=== PATIENT | male | born 1960 | race Caucasian/White ===

== ENCOUNTER 2017-01-20 04:15 | Inpatient (IN) | payer SELFPAY ==
[~2017-01-20] VITALS: Ht 182.9 cm; Wt 95.0 kg
[2017-01-20] VITALS (30 sets, daily range): BP systolic 142–214; BP diastolic 74–119; PULSE 52–74; RESP 12–18; TEMP 97.7–98.9; O2SAT 97–100
[~2017-01-20 04:15] MED LIST: ALBU17I INH; LASI20TA PO; LISI-360 PO; METO100T PO; POTA20PA PO
--- NOTE | 2017-01-20 04:22 | PD ---
HPI Chief Complaint: Chest Pain Time Seen by Provider: 04:17 Travel History International Travel<30 days: No Contact w/Intl Traveler<30days: No History of Present Illness HPI Patient is a 56-year-old male with history of malignant hypertension and aortic dissection status post stenting approximately 2 years ago at [facility]. Patient believes that this was a dissection of the ascending and descending aorta. He points to both his chest and abdomen. Patient states that he has had now 4 hours of a tightness across his chest that feels somewhat similar to when he had an aortic dissection, but not to this severity, with today's pain been mild to moderate. Patient states his blood pressure has been poorly managed for some time. He took 2 metoprolol prior to arrival and his blood pressure remains in the 200 systolic in triage. He denies any associated shortness of breath, nausea, vomiting, lightheadedness. No history of coronary artery disease. PFSH Past Medical History Anxiety: No Depression: No Heart Rhythm Problems: No Cancer: No Cardiac Catheterization: Yes (2004) Cardiovascular Problems: Yes (CARDIOMEGALY ) Chest Pain: No Cerebrovascular Accident: No Diabetes: No Endocrine: No GERD: Yes Genitourinary: No Hypertension: Yes Immune Disorder: No Musculoskeletal: Yes Neurologic: Yes Psychiatric: No Reproductive: No Respiratory: No Migraines: Yes Past Surgical History Abdominal Surgery: No Cardiac Surgery: No Endocrine Surgery: No Eye Surgery: No Genitourinary Surgery: No Thoracic Surgery: No Tonsillectomy: Yes Other Surgery: Yes (stent for aortic dissection) Social History Alcohol Use: Yes (OCC) Tobacco Use: Yes (10/21 PPD) Substance Use: No Allergies-Medications (Allergen,Severity, Reaction): Coded Allergies: No Known Allergies (Unverified , 01/20/17) Reported Meds & Prescriptions Reported Meds & Active Scripts Active Reported Metoprolol Tartrate 100 Mg Tab 100 Mg PO BID Proventil Hfa 6.7 GM Inh (Albuterol Sulfate) Unknown Strength Aer Unknown Dose INH Q4-6H PRN Lisinopril 20 Mg Tab 20 Mg PO BID Review of Systems Except as stated in HPI: all other systems reviewed are Neg Physical Exam Narrative GENERAL: Well-appearing male in mild distress SKIN: Focused skin assessment warm/dry. HEAD: Normocephalic. EYES:No scleral icterus. No injection or drainage. ENT: Mucous membranes pink and moist. NECK: Supple CARDIOVASCULAR: Regular rate and rhythm. No murmur appreciated. RESPIRATORY: No accessory muscle use. Clear to auscultation. Breath sounds equal bilaterally. GASTROINTESTINAL: Abdomen soft, non-tender, nondistended. Hepatic and splenic margins not palpable. MUSCULOSKELETAL: Good distal pulses in all 4 extremities, no edema. NEUROLOGICAL: Awake and alert. Motor grossly within normal limits. Normal speech. PSYCHIATRIC: Appropriate mood and affect; insight and judgment normal. Data Data Last Documented VS Vital Signs Date Time Temp Pulse Resp B/P Pulse Ox O2 Delivery O2 Flow Rate FiO2 01/20/17 06:17 63 12 163/78 100 Room Air 01/20/17 04:17 98.9 Orders Electrocardiogram (01/20/17 04:17) Basic Metabolic Panel (Bmp) (01/20/17 04:17) Ckmb (Isoenzyme) Profile (01/20/17 04:17) Complete Blood Count With Diff (01/20/17 04:17) Magnesium (Mg) (01/20/17 04:17) Prothrombin Time / Inr (Pt) (01/20/17 04:17) Act Partial Throm Time (Ptt) (01/20/17 04:17) Troponin I (01/20/17 04:17) Chest, Single Ap (01/20/17 04:17) Ecg Monitoring (01/20/17 04:17) Bilateral Bp Monitoring (01/20/17 04:17) Iv Access Insert/Monitor (01/20/17 04:17) Oximetry (01/20/17 04:17) Oxygen Administration (01/20/17 04:17) Sodium Chloride 0.9% Flush (Ns Flush) (01/20/17 04:30) Nitroglycerin Sl (Nitrostat Sl) (01/20/17 04:30) Cta Thor Abd Aorta W Iv C W3d (01/20/17 04:17) Labetalol Inj (Trandate Inj) (01/20/17 04:30) Labetalol Inj (Trandate Inj) (01/20/17 04:45) CKMB (01/20/17 04:35) CKMB% (01/20/17 04:35) Hydralazine Inj (Apresoline Inj) (01/20/17 05:30) Enalaprilat Inj (Vasotec Inj) (01/20/17 06:15) Iohexol 350 Inj (Omnipaque 350 Inj) (01/20/17 06:10) Labs Laboratory Tests Test 01/20/17 04:35 White Blood Count 9.5 TH/MM3 Red Blood Count 5.35 MIL/MM3 Hemoglobin 17.1 GM/DL Hematocrit 49.8 % Mean Corpuscular Volume 93.1 FL Mean Corpuscular Hemoglobin 32.0 PG Mean Corpuscular Hemoglobin 34.3 % Concent Red Cell Distribution Width 14.2 % Platelet Count 246 TH/MM3 Mean Platelet Volume 7.6 FL Neutrophils (%) (Auto) 58.8 % Lymphocytes (%) (Auto) 27.7 % Monocytes (%) (Auto) 8.6 % Eosinophils (%) (Auto) 4.3 % Basophils (%) (Auto) 0.6 % Neutrophils # (Auto) 5.6 TH/MM3 Lymphocytes # (Auto) 2.6 TH/MM3 Monocytes # (Auto) 0.8 TH/MM3 Eosinophils # (Auto) 0.4 TH/MM3 Basophils # (Auto) 0.1 TH/MM3 CBC Comment DIFF FINAL Differential Comment Prothrombin Time 10.9 SEC Prothromb Time International 1.0 RATIO Ratio Activated Partial 27.4 SEC Thromboplast Time Sodium Level 139 MEQ/L Potassium Level 3.2 MEQ/L Chloride Level 105 MEQ/L Carbon Dioxide Level 25.3 MEQ/L Anion Gap 9 MEQ/L Blood Urea Nitrogen 9 MG/DL Creatinine 1.34 MG/DL Estimat Glomerular Filtration 55 ML/MIN Rate Random Glucose 105 MG/DL Calcium Level 9.1 MG/DL Magnesium Level 2.3 MG/DL Total Creatine Kinase 152 U/L Creatine Kinase MB 3.2 NG/ML Troponin I 0.13 NG/ML [facility] Medical Decision Making Medical Screen Exam Complete: Yes Emergency Medical Condition: Yes Medical Record Reviewed: Yes Differential Diagnosis 56-year-old male with history of malignant hypertension and previous aortic dissection status post stent repair here with complaint of 4 hours of a tightness across the precordium similar to when he had a dissection. Differential includes aortic dissection, atypical chest pain, ACS, musculoskeletal, GERD, PE, arrhythmia. Narrative Course Patient placed on monitor, IV established and blood obtained. A twelve-lead EKG shows sinus rhythm with evidence of LVH with strain-type pattern. Patient was given nitroglycerin, labetalol IV for hypertension. Portal chest x-ray obtained that by my read shows what appears to be a descending aortic stent graft. The mediastinum is narrow and does not appear overtly widened. CBC, BMP , magnesium, CK-MB, troponin, coags notable for troponin 0.13. Patient remains hypertensive, but heart rate down the 50s. Given hydralazine with essentially no improvement. Given enalapril. CTA of the chest abdomen and pelvis showed stent grafts device involving the descending aorta. Small chronic residual dissection flap directly adjacent to the distal end of the stent but no new dissection. Patient given aspirin, heparin and will be admitted. Patient's pain is improved, will be admitted for further management of non-ST elevation WA. Critical Care Narrative Aggregate critical care time was 50 minutes. Time to perform other separately billable procedures was not included in the critical care time. My time did not include minutes spent treating any other patients simultaneously or on activities that did not directly contribute to the patient's treatment. The services I provided to this patient were to treat and/or prevent clinically significant deterioration that could result in: No pulmonary decompensation, , disability, hypertensive emergency I provided critical care services requiring my management, as noted below: Chart data review, documentation time, medication orders and management, vital sign assessments/reviewing monitor data, ordering and reviewing lab tests, ordering and interpreting/reviewing x-rays and diagnostic studies, care of the patient and discussion of the patient with the admitting physicians. Diagnosis Primary Impression: Non-ST elevation WA (NSTEMI) Additional Impression: Accelerated hypertension Admitting Information Admitting Physician Requests: Admit Marilin Bahena MD Jan 20, 2017 04:22
[2017-01-20] MEDS: NITROGLYCERIN 0.4 MG SL 25 TABS/BTL SL SCH ×3 (04:24→04:42)
[2017-01-20] MEDS ORDERED: SODIUM CHLORIDE 0.9% FLUSH 10 ML FLUSH IVF PRN (04:30)
[2017-01-20] MEDS ORDERED: LABETALOL HCL 100 MG/20 ML VIAL IV PUSH ONE ×2 (04:30→04:45)
[2017-01-20] MEDS ORDERED: LISI-515 PO (04:40)
[2017-01-20] MEDS ORDERED: ALBU6.7H INH (04:40)
[2017-01-20] MEDS ORDERED: METO100T PO (04:40)
[2017-01-20 04:45] LABS: AUTOMATED NEUTROPHIL # 5.6 TH/MM3 (1.8-7.7); BASOPHIL # 0.1 TH/MM3 (0-0.2); BASOPHIL % 0.6 % (0.0-2.0); EOSINOPHIL # 0.4 TH/MM3 (0-0.4); EOSINOPHIL % 4.3 % (0.0-4.0); HEMATOCRIT 49.8 % (39.0-51.0); HEMO FLAGS DIFF FINAL; LYMPH % 27.7 % (9.0-44.0); LYMPHOCYTE # 2.6 TH/MM3 (1.0-4.8); MEAN CELL VOLUME 93.1 FL (80.0-100.0); MEAN CORPUSCULAR HGB CONC 34.3 % (32.0-36.0); MONO % 8.6 % (0.0-8.0); NEUT % 58.8 % (16.0-70.0); PLATELET COUNT 246 TH/MM3 (150-450); RED BLOOD COUNT 5.35 MIL/MM3 (4.50-5.90); RED CELL DISTRIBUTION WIDTH 14.2 % (11.6-17.2); WHITE BLOOD COUNT 9.5 TH/MM3 (4.0-11.0)
[2017-01-20 04:53] LABS: APTT (PATIENT) 27.4 SEC (24.3-30.1); PROTHROMBIN TIME - PATIENT 10.9 SEC (9.8-11.6)
--- NOTE | 2017-01-20 05:16 | RADRPT ---
EXAM DATE/TIME: 01/20/2017 04:43 [facility] COMPARISON: No previous studies available for comparison. INDICATIONS : Chest pain. MEDICAL HISTORY : Hypertension. Cardiomegaly. SURGICAL HISTORY : Aortic dissection, stent. ENCOUNTER: Initial ACUITY: 1 day PAIN SCORE: 5/10 LOCATION: chest FINDINGS: A single view of the chest demonstrates the lungs to be symmetrically aerated without evidence of mas s, infiltrate or effusion. An endograft is seen involving the descending aorta. The cardiomediastinal contours are unremarkable. Osseous structures are intact. A mildly scoliotic and degenerative spine . CONCLUSION: 1. No acute cardiopulmonary disease. 2. Endograft involving the descending aorta. Los Lowery Jr., MD on January 20, 2017 at 5:13 Board Certified Radiologist. This report was verified electronically.
[2017-01-20 05:18] LABS: CREATINE KINASE 152 U/L (39-308)
[2017-01-20 05:25] LABS: ANION GAP 9 MEQ/L (5-15); BICARBONATE 25.3 MEQ/L (21.0-32.0); BLOOD UREA NITROGEN 9 MG/DL (7-18); CHLORIDE 105 MEQ/L (98-107); GLOMERULAR FILTRATION RATE 55 ML/MIN (>89); MAGNESIUM 2.3 MG/DL (1.5-2.5); POTASSIUM 3.2 MEQ/L (3.5-5.1); SODIUM (NA) 139 MEQ/L (136-145)
[2017-01-20 05:30] LABS: CKMB 3.2 NG/ML (0.5-3.6)
[2017-01-20] MEDS ORDERED: hydrALAZINE HCL 20 MG/ML VIAL IV PUSH ONE (05:30)
[2017-01-20] MEDS ORDERED: IOHEXOL 350 MG/ML 10 ML VIAL (for RAD DIAG) IV ONE (06:10)
[2017-01-20] MEDS ORDERED: ENALAPRILAT 2.5 MG/2 ML VIAL IV PUSH ONE (06:15)
--- NOTE | 2017-01-20 06:34 | RADRPT ---
EXAM DATE/TIME: 01/20/2017 06:01 [facility] COMPARISON: No previous studies available for comparison. INDICATIONS : History of aortic dissection. Complains of chest pain. IV CONTRAST: 94 cc Omnipaque 350 (iohexol) IV RADIATION DOSE: 6.91 CTDIvol (mGy) MEDICAL HISTORY : Hypertension. Gastroesophageal reflux disease. Aortic dissection. SURGICAL HISTORY : Aortic Stents. ENCOUNTER: Initial ACUITY: 1 day PAIN SCALE: 7/10 LOCATION: chest TECHNIQUE: Volumetric scanning was performed using a multi-row detector CT scanner. The data was post processed with a variety of visualization algorithms including full volume maximum intensity projection, multi -planar sliding thin slab reformation, curved planar reformation, and surface rendering techniques. Using automated exposure control and adjustment of the mA and/or kV according to patient size, radiat ion dose was kept as low as reasonably achievable to obtain optimal diagnostic quality images. FINDINGS: Thoracic/abdominal aorta: An aortic stent graft is seen involving the descending aorta. Adjacent to the most distal end of the stent graft is a small residual dissection flap. This is chronic in nature. The stent graft is patent . Aorta is normal in caliber throughout its entirety. The arch vessels, celiac, SMA, NELIDA, and renal a rteries are patent. Inflow vessels are patent. No new dissection observed. Heart and mediastinum: The heart is normal in size. No pericardial effusion. Pulmonary arteries are normal in caliber. No ad enopathy or mass. Lung parenchyma: Lungs are clear. Other structures: Abdominal visceral structures are normal. CONCLUSION: 1. No acute abnormality. 2. Stent graft device involving the descending aorta. A small chronic residual dissection flap is see n directly adjacent to the distal end of the stent. No new dissection observed. Los Lowery Jr., MD on January 20, 2017 at 6:28 Board Certified Radiologist. This report was verified electronically.
[2017-01-20] MEDS ORDERED: HEPARIN SODIUM - IV 10,000 UNITS/10 ML VIAL IV ONE (06:45)
[2017-01-20] MEDS ORDERED: ASPIRIN 81 MG CHEW TAB CHEW ONE (06:45)
[2017-01-20] MEDS ORDERED: HEPARIN-D5W INJ 250 ML IV SCH (06:45)
[2017-01-20] MEDS ORDERED: ACETAMINOPHEN 325 MG TAB PO PRN (07:00)
[2017-01-20] MEDS ORDERED: SODIUM CHLORIDE 0.9% FLUSH 10 ML FLUSH IV FLUSH PRN (07:00)
[2017-01-20] MEDS ORDERED: BISACODYL 10 MG SUPP RECTAL PRN (07:00)
[2017-01-20] MEDS ORDERED: ACETAMINOPHEN/HYDROcodone 325 MG/5 MG TAB PO PRN (07:00)
[2017-01-20] MEDS ORDERED: MORPHINE SULFATE 4 MG/ML INJ IV PRN (07:00)
[2017-01-20] MEDS ORDERED: NITROGLYCERIN 2% OINT 1 GM PACKET TOPICAL PRN (07:00)
[2017-01-20] MEDS ORDERED: ONDANSETRON HCL 4 MG/2 ML VIAL IVP PRN (08:00)
[2017-01-20] MEDS: SODIUM CHLOR 0.9% 1000 ML INJ 1,000 ML IV SCH ×2 (08:22→18:00)
[2017-01-20] MEDS ORDERED: METOPROLOL TARTRATE 100 MG TAB PO SCH (09:00)
[2017-01-20] MEDS ORDERED: hydrALAZINE HCL 20 MG/ML VIAL IV PUSH PRN (09:00)
[2017-01-20] MEDS: SODIUM CHLORIDE 0.9% FLUSH 10 ML FLUSH IV FLUSH SCH ×2 (09:00→21:15)
[2017-01-20] MEDS: LISINOPRIL 20 MG TAB PO SCH (10:08)
--- NOTE | 2017-01-20 10:31 | EKG ---
Date Performed: 01/20/2017 Time Performed: 04:15:07 PTAGE: 56 years EKG: Sinus rhythm POSSIBLE LEFT ATRIAL ENLARGEMENT BORDERLINE LEFT AXIS DEVIATION LEFT VENTRICULAR HYPERTROPHY AND ST- T CHANGE ABNORMAL ECG INTERPRETATION BASED ON A DEFAULT AGE OF 40 YEARS NO PREVIOUS TRACING DOCTOR: Warren Cain Interpretating Date/Time 01/20/2017 10:30:45
--- NOTE | 2017-01-20 13:14 | MB ---
cc: ADRY ALDANA M.D. DATE OF CONSULTATION: 01/20/2017 REASON FOR CONSULTATION Evaluation of chest pain and accelerated hypertension. HISTORY OF PRESENT ILLNESS Tom Bragg is a 56-year-old man admitted to the hospital with chest pain. The patient has a longstanding history of hypertension. He has left ventricular hypertrophy on his echo and on his EKG. He presented to [facility] on June 27, 2014. CT angiograms on June 28, 2014 showed a dissection of the thoracic aorta starting just distal to the left subclavian and going down to the superior mesenteric arteries. He was transferred to [facility] and had a stent graft placed in the thoracic aorta. Those records have not yet been obtained. The patient has severe hypertension and a very complex medical regimen. On top of that he continues to smoke and continues to drink 4-5 beers a day. He had a job that provided health insurance but he said because he "mouthed off" he got fired from that job. He is in a different job now but that job does not provide health insurance. He has been continuing on his metoprolol but has been out of his hydralazine, amlodipine lisinopril and doxazosin for at least three weeks. He came into the ER with four hours of substernal chest pain with a blood pressure of 214/119. He was treated aggressively in the ER to bring his blood pressure down. At the time I am seeing him his chest pain is resolved. PAST MEDICAL HISTORY 1. Severe hypertension with left ventricular hypertrophy. 2. Aortic dissection. 3. Longstanding tobacco use. 4. Longstanding alcohol abuse. 5. Noncompliance. 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 He is . He lives alone. He moved here from [place] 30 years ago. FAMILY HISTORY Positive for heart disease. PHYSICAL EXAMINATION GENERAL: A well-developed, well-nourished man in no acute distress. VITAL SIGNS: Vital signs are charted. HEENT: Unremarkable. NECK: Negative for bruits. CHEST: Clear to auscultation. CARDIAC: S1, S2, S4, regular rate and rhythm, 2/6 systolic ejection murmur. ABDOMEN: Soft. No masses. EXTREMITIES: Good distal pulses. No clubbing, cyanosis or edema. EKG EKG shows sinus rhythm, LVH, LV strain-type pattern. LABORATORY Laboratories are charted. Hematocrit 49.8. Potassium 3.2. Creatinine 1.34. Troponin elevated at 0.13. IMAGING Chest x-ray show an endo graft to the descending aorta. CT of the aorta shows a stent graft device in the descending aorta. Adjacent to the most distal end of the stent is a small residual dissection flap, chronic in nature. The aortic arch vessels, celiac, SMA, NELIDA and renal arteries all have patent flow. IMPRESSION Hypertensive crisis, slightly elevated troponin, possible type 2 myocardial infarction from the stress of hypertension. Chest pain is relieved by bringing the blood pressure down. He has been noncompliant with smoking cessation, noncompliant with his alcohol abuse and noncompliant with his medications. PLAN I am going to restart amlodipine 10 mg daily since that is one of his home medicines. I am going to restart lisinopril 20 mg daily. I am going to hold off on starting doxazosin and metoprolol, instead switch to labetalol initiating 200 b.i.d. but likely will need 400 b.i.d. Will try to see if we can control him without the use of t.i.d. hydralazine since compliance with a t.i.d. regimen is going to be difficult. Further therapy to be determined. MD GAIL La/GABBI /9:31 AM /12:56 PM
--- NOTE | 2017-01-20 14:04 | HHI.HP ---
[facility] Primary Care Physician No Primary Care Physician Admission Diagnosis NSTEMI, accelerated HTN Diagnoses: Chief Complaint: Chest pain Travel History International Travel<30 Days: No Contact w/Intl Traveler <30 Da: No Traveled to Known Affected Are: No History of Present Illness 56 years old male with history of aortic dissection status post grafting, presented to the ED with a central chest pain prescribed as pressure around 5 out of 10, with slight short of breath, he stated it's nothing like the pain he had with the aortic dissection, no lightheaded or diaphoresis or transferring of the pain, no nausea or vomiting. He was found in ED to have a blood pressure of 214/119, and EKG consistent with left ventricular hypertrophy. Patient started on antihypertensive treatment with enalapril hydralazine and labetalol iv, CT of the chest done ruled out new aortic dissection, so patient started on aspirin and heparin for ACS workup, cardiology consulted. Patient now free chest pain, no other symptoms, blood pressure at 149/85 Patient told me he stopped taking his hydralazine and prazosin due to change in his insurance Review of Systems All 10 systems reviewed and was positive for what is mentioned in history of present illness otherwise negative Past Family Social History Past Medical History Severe hypertension with left ventricular hypertrophy History of aortic dissection status post repair and grafting Long-standing tobacco and alcohol abuse Noncompliance Past Surgical History As above Allergies: Coded Allergies: No Known Allergies (Unverified , 01/20/17) Family History Father , 3 uncles, and a sister all from aortic dissection Social History He smoke a pack a day for over for the last 25-30 years He drinks alcohol 4-5 times a week No history of also drug abuse Physical Exam Vital Signs Vital Signs Date Time Temp Pulse Resp B/P Pulse Ox O2 Delivery O2 Flow Rate FiO2 01/20/17 13:00 68 01/20/17 12:00 74 01/20/17 11:00 98.1 63 18 149/81 98 01/20/17 11:00 67 01/20/17 10:00 60 01/20/17 09:30 65 01/20/17 09:15 98.8 64 18 163/87 98 01/20/17 08:22 61 12 155/81 97 Room Air 01/20/17 07:11 63 12 155/74 100 Room Air 01/20/17 07:09 63 165/80 174/84 01/20/17 07:06 100 Room Air 01/20/17 07:04 98.5 64 12 181/86 100 Room Air 01/20/17 06:55 63 14 151/76 100 Room Air 01/20/17 06:17 63 12 163/78 100 Room Air 01/20/17 05:59 52 12 196/97 99 Room Air 01/20/17 05:02 56 18 181/100 98 Room Air 01/20/17 04:45 65 16 154/75 98 Room Air 01/20/17 04:40 65 16 155/95 98 Room Air 01/20/17 04:33 14 99 Room Air 01/20/17 04:31 66 14 153/96 99 Room Air 01/20/17 04:26 68 16 159/92 100 Room Air 01/20/17 04:25 65 12 100 Room Air 01/20/17 04:17 98.9 63 12 214/119 100 Physical Exam GENERAL: This is a well-nourished, well-developed patient, in no apparent distress. SKIN: No rashes, warm and dry HEAD: Atraumatic. Normocephalic. EYES: Pupils equal round and reactive. Extraocular motions intact. No scleral icterus. ENT: Nose without bleeding, or drainage, Airway patent. NECK: Trachea midline. Supple CARDIOVASCULAR: Regular rate and rhythm, blowing systolic murmur 3 out of 6 RESPIRATORY: Fair air entry bilaterally. No wheezes, rales, or rhonchi. GASTROINTESTINAL: Abdomen soft, non-tender, nondistended. Positive bowel sounds MUSCULOSKELETAL: Extremities without clubbing, cyanosis, or edema. Pedal pulses appreciated NEUROLOGICAL: Awake and alert. Moves all extremity. Normal speech.no focal neurological deficit Laboratory Laboratory Tests Test 01/20/17 01/20/17 04:35 12:50 White Blood Count 9.5 Red Blood Count 5.35 Hemoglobin 17.1 Hematocrit 49.8 Mean Corpuscular Volume 93.1 Mean Corpuscular Hemoglobin 32.0 Mean Corpuscular Hemoglobin 34.3 Concent Red Cell Distribution Width 14.2 Platelet Count 246 Mean Platelet Volume 7.6 Neutrophils (%) (Auto) 58.8 Lymphocytes (%) (Auto) 27.7 Monocytes (%) (Auto) 8.6 Eosinophils (%) (Auto) 4.3 Basophils (%) (Auto) 0.6 Neutrophils # (Auto) 5.6 Lymphocytes # (Auto) 2.6 Monocytes # (Auto) 0.8 Eosinophils # (Auto) 0.4 Basophils # (Auto) 0.1 CBC Comment DIFF FINAL Differential Comment Prothrombin Time 10.9 Prothromb Time International 1.0 Ratio Activated Partial 27.4 Thromboplast Time Sodium Level 139 Potassium Level 3.2 Chloride Level 105 Carbon Dioxide Level 25.3 Anion Gap 9 Blood Urea Nitrogen 9 Creatinine 1.34 Estimat Glomerular Filtration 55 Rate Random Glucose 105 Calcium Level 9.1 Magnesium Level 2.3 Total Creatine Kinase 152 Creatine Kinase MB 3.2 Troponin I 0.13 0.11 Result Diagram: 01/20/1743401/20/17434 Imaging Last Impressions Chest X-Ray 01/20/17416 Signed Impressions: Service Date/Time: Friday, January 20, 2017 04:43 - CONCLUSION: 1. No acute cardiopulmonary disease. 2. Endograft involving the descending aorta. Los Lowery Jr., MD Aorta CTA 01/20/17416 Signed Impressions: Service Date/Time: Friday, January 20, 2017 06:01 - CONCLUSION: 1. No acute abnormality. 2. Stent graft device involving the descending aorta. A small chronic residual dissection flap is seen directly adjacent to the distal end of the stent. No new dissection observed. Los Lowery Jr., MD EKG sinus with left atrial hypertrophy, right ventricular hypertrophy, LAD Assessment and Plan Assessment and Plan 56 years old male with history of aortic dissection status post repair and grafting came with Hypertensive urgency Acute chest pain syndrome mostly due to hypertensive urgency need to rule out ACS and aortic dissection Elevated troponin 0.13>0.11 Hypokalemia 3.3 History of aortic dissection status post repair and grafting tobacco and alcohol abuse H/O Noncompliance DVT prophylaxis patient on heparin drip Plan: Admit to inpatient with telemetry Cycle cardiac enzyme CTA of the chest ruled out new aortic dissection Started on aspirin and heparin drip for ACS workup 2-D echo to assess heart capacity and verify systolic murmur Consulted cardiology, appreciated their input>> resuming amlodipine, adding lisinopril, changing Cardura and Lopressor to labetalol by mouth, blood pressure already improved Monitor blood pressure closely Patient extensively counseled about tobacco and alcohol abuse DT prophylaxis with folic acid thiamine and Librium as needed Replace potassium with KCl 40 mg by mouth 1 Discussed Condition With Patient Physician Certification 2 Midnight Certification Type: Admission for Inpatient Services Order for Inpatient Services The services are ordered in accordance with Medicare regulations or non- Medicare payer requirements, as applicable. In the case of services not specified as inpatient-only, they are appropriately provided as inpatient services in accordance with the 2-midnight benchmark. Estimated LOS (days): 2 days is the estimated time the patient will need to remain in the hospital, assuming treatment plan goals are met and no additional complications. Post-Hospital Plan: Not yet determined Mae Montano MD Jan 20, 2017 14:04
[2017-01-20] MEDS ORDERED: POTASSIUM CHLORIDE 20 MEQ CONTROLLED RELEASE TAB PO ONE (14:30)
[2017-01-20 14:55] LABS: APTT (PATIENT) 33.9 SEC (24.3-30.1)
--- NOTE | 2017-01-20 16:21 | EC ---
Study Study Date:01/20/2017 STUDY CONCLUSIONS SUMMARY - Left ventricle: The cavity size was normal. Wall thickness was increased in a pattern of severe LVH. Systolic function was vigorous. The estimated ejection fraction was in the range of 65% to 70%. Wall motion was normal; there were no regional wall motion abnormalities. - Aortic valve: Mild regurgitation. Valve area: 2.85cm^2(VTI). Valve area: 2.49cm^2 (Vmax). - Mitral valve: Valve area by pressure half-time: 2.5cm^2. - Pulmonic valve: Mild regurgitation. If LV function is below 40, please consider prescribing an ACEI or ARB or document rationale for non-use. PROCEDURE DATA STUDY STATUS: Elective. Procedure: Transthoracic echocardiography. Image quality was good. Scanning was performed from the parasternal, apical, and subcostal acoustic windows. Study completion: The patient tolerated the procedure well. Transthoracic echocardiography. M-mode, complete 2D, complete spectral Doppler, and color Doppler. Height: Height: 72in. Weight: Weight: 208.6lb. Body mass index: BMI: 28.3kg/m^2. Body surface area: BSA: 2.17m^2. Patient status: Inpatient. CARDIAC ANATOMY LEFT VENTRICLE: The cavity size was normal. Wall thickness was increased in a pattern of severe LVH. Systolic function was vigorous. The estimated ejection fraction was in the range of 65% to 70%. Wall motion was normal; there were no regional wall motion abnormalities. AORTIC VALVE: Trileaflet; normal thickness leaflets. Doppler: Transvalvular velocity was within the normal range. There was no stenosis. Mild regurgitation. Valve area: 2.85cm^2(VTI). Indexed valve area: 1.31cm^2/m^2 (VTI). Valve area: 2.49cm^2 (Vmax). Indexed valve area: 1.15cm^2/m^2 (Vmax). Mean gradient: 8mm Hg (S). Peak gradient: 15mm Hg (S). AORTA: Aortic root: The aortic root was normal in size. MITRAL VALVE: Structurally normal valve. Doppler: Transvalvular velocity was within the normal range. There was no evidence for stenosis. No regurgitation. Valve area by pressure half-time: 2.5cm^2. Indexed valve area by pressure half-time: 1.15cm^2/m^2. LEFT ATRIUM: The atrium was at the upper limits of normal in size. RIGHT VENTRICLE: The cavity size was normal. Wall thickness was normal. PULMONIC VALVE: Doppler: Transvalvular velocity was within the normal range. There was no evidence for stenosis. Mild regurgitation. TRICUSPID VALVE: Structurally normal valve. Doppler: Transvalvular velocity was within the normal range. No regurgitation. PULMONARY ARTERY: The main pulmonary artery was normal-sized. Systolic pressure was within the normal range. RIGHT ATRIUM: The atrium was normal in size. PERICARDIUM: There was no pericardial effusion. SYSTEMIC VEINS: Inferior vena cava: The vessel was normal in size. Patient weight: 208.6lb _Ejection fraction:_ 65-75% _Fractional shortening:_ 32% up to 5Kg 5-11.5Kg 11.6-22.9Kg 23-45Kg 45-57Kg Aortic Root 7-13 <17 13-22 17-27 17-27 LA diam 6-13 <23 24-38 33-47 37-40 RVID 10-17 7-15 7-15 7-18 8-17 LVIDd 12-22 <32 24-38 33-47 37-40 LVPW 2-4 3-6 5-7 6-8 7-8 IVS 2-4 3-6 5-7 6-8 7-8 BASIC MEASUREMENTS ADULT NORMAL Left ventricle LV internal dimension, ED, chordal *41.6 mm 43-52 level, PLAX LV internal dimension, ES, chordal *22.6 mm 23-38 level, PLAX Fractional shortening, chordal level, 46 % >29 PLAX LV posterior wall thickness, ED 17.8 mm IVS/LVPW ratio, ED 1.01 <1.3 Volume, ED, MOD, 1-plane 95 ml Volume, ES, MOD, 1-plane 23 ml Ejection fraction, MOD, 1-plane 76 % Stroke volume, MOD, 1-plane 72 ml Volume index, ED, MOD, 1-plane 44 ml/m^2 Volume index, ES, MOD, 1-plane 11 ml/m^2 Stroke index, MOD, 1-plane 33.2 ml/m^2 Ventricular septum Septal thickness, ED 17.9 mm Aortic valve Leaflet separation 23 mm 15-26 Left atrium Anterior-posterior dimension 40 mm Anterior-posterior dimension index 1.84 cm/m^2 <2.2 Right ventricle RV internal dimension, ED, PLAX 33.9 mm 19-38 BASIC MEASUREMENTS ADULT NORMAL Aortic valve Leaflet separation 23 mm 15-26 Aorta Root diameter, ED 34 mm 20-37 Left atrium Anterior-posterior dimension, ES 40 mm 19-40 Anterior-posterior dimension index, ES 1.84 cm/m^2 <2.2 LA/aortic root ratio 1.18 DOPPLER MEASUREMENTS ADULT NORMAL Aortic valve Peak velocity, S 194 cm/s Mean velocity, S 132 cm/s VTI, S 39.9 cm Mean gradient, S 8 mm Hg Peak gradient, S 15 mm Hg Valve area, VTI 2.85 cm^2 Valve area index, VTI 1.31 cm^2/m^2 Valve area, Vmax 2.49 cm^2 Valve area index, Vmax 1.15 cm^2/m^2 Regurgitant velocity, ED 444 cm/s Regurgitant deceleration 1890 cm/s^2 Regurgitant pressure half-time 691 ms Regurgitant gradient, ED 79 mm Hg Mitral valve Peak E-wave velocity 65.6 cm/s Peak A-wave velocity 98.7 cm/s Pressure half-time 88 ms Peak E/A ratio 0.7 Valve area, pressure half-time 2.5 cm^2 Valve area index, pressure half-time 1.15 cm^2/m^2 Pulmonic valve Peak velocity, S 126 cm/s Acceleration time 486 ms LEGEND: Mean values are shown as u=mean value. Asterisk (*) dennis values outside specified normal range. Prepared and signed by Hudson eLslie [id number]
[2017-01-20] MEDS ORDERED: TEMAZEPAM 7.5 MG CAP PO ONE (20:15)
[2017-01-20] MEDS: LABETALOL HCL 200 MG TAB PO SCH (21:15)
[2017-01-21] VITALS (16 sets, daily range): BP systolic 151–155; BP diastolic 77–90; PULSE 52–72; RESP 16–18; TEMP 97.7–97.9; O2SAT 97–98
[2017-01-21 06:20] LABS: AUTOMATED NEUTROPHIL # 4.9 TH/MM3 (1.8-7.7); BASOPHIL % 0.5 % (0.0-2.0); EOSINOPHIL # 0.3 TH/MM3 (0-0.4); EOSINOPHIL % 3.8 % (0.0-4.0); HEMATOCRIT 44.9 % (39.0-51.0); HEMO FLAGS DIFF FINAL; MEAN CELL VOLUME 94.4 FL (80.0-100.0); MEAN CORPUSCULAR HEMOGLOBIN 31.5 PG (27.0-34.0); MEAN CORPUSCULAR HGB CONC 33.4 % (32.0-36.0); NEUT % 61.7 % (16.0-70.0); PLATELET COUNT 170 TH/MM3 (150-450); RED BLOOD COUNT 4.76 MIL/MM3 (4.50-5.90); RED CELL DISTRIBUTION WIDTH 14.2 % (11.6-17.2); WHITE BLOOD COUNT 7.9 TH/MM3 (4.0-11.0)
[2017-01-21 06:58] LABS: ALKALINE PHOSPHATASE 67 U/L (45-117); ALT (GPT) 16 U/L (12-78); ANION GAP 8 MEQ/L (5-15); AST (GOT) 12 U/L (15-37); BICARBONATE 28.9 MEQ/L (21.0-32.0); BLOOD UREA NITROGEN 11 MG/DL (7-18); CHLORIDE 107 MEQ/L (98-107); GLOMERULAR FILTRATION RATE 62 ML/MIN (>89); POTASSIUM 4.1 MEQ/L (3.5-5.1); SODIUM (NA) 144 MEQ/L (136-145); TOTAL BILIRUBIN ADULT 0.7 MG/DL (0.2-1.0)
[2017-01-21] MEDS: SODIUM CHLORIDE 0.9% FLUSH 10 ML FLUSH IV FLUSH SCH (08:54)
[2017-01-21] MEDS: LABETALOL HCL 200 MG TAB PO SCH (08:54)
[2017-01-21] MEDS: LISINOPRIL 20 MG TAB PO SCH (08:54)
[2017-01-21] MEDS ORDERED: THIAMINE HCL 100 MG TAB PO SCH (09:00)
[2017-01-21] MEDS ORDERED: HYDROCHLOROTHIAZIDE 25 MG TAB PO SCH (10:00)
--- NOTE | 2017-01-21 10:06 | PD.CARD.PN ---
Subjective Subjective Remarks No complaints Objective Medications Current Medications Medications (Trade) Dose Ordered Sig/Everette Route Start Time Stop Time Status Last Admin (NS Flush) 2 ml UNSCH PRN IV FLUSH 01/20/17 07:00 (NS Flush) 2 ml BID IV FLUSH 01/20/17 09:00 01/21/17 08:54 (Zofran Inj) 4 mg Q6H PRN IVP 01/20/17 08:00 (Dulcolax Supp) 10 mg DAILY PRN RECTAL 01/20/17 07:00 (Tylenol) 650 mg Q6H PRN PO 01/20/17 07:00 ([place] 5-325 Mg) 1 tab Q4H PRN PO 01/20/17 07:00 (Morphine Inj) 2 mg Q3H PRN IV 01/20/17 07:00 (Nitroglycerin 2% Oint) 0.5 inch Q6HR PRN TOPICAL 01/20/17 07:00 (Apresoline Inj) 10 mg Q4H PRN IV PUSH 01/20/17 09:00 (Norvasc) 10 mg DAILY PO 01/20/17 09:30 01/21/17 08:54 (Prinivil) 20 mg DAILY PO 01/20/17 09:30 01/21/17 08:54 (Vitamin B1) 100 mg DAILY PO 01/21/17 09:00 01/21/17 08:54 (Librium) 10 mg TID PRN PO 01/20/17 15:00 (Hydrodiuril) 25 mg DAILY PO 01/21/17 10:00 UNV (Trandate) 400 mg Q12HR PO 01/21/17 21:00 UNV Vital Signs / I&O Vital Signs Date Time Temp Pulse Resp B/P Pulse Ox O2 Delivery O2 Flow Rate FiO2 01/21/17 07:30 97.7 58 18 151/90 97 01/21/17 06:32 59 01/21/17 05:08 56 01/21/17 04:15 56 01/21/17 03:20 97.8 53 16 153/77 97 01/21/17 03:03 55 01/21/17 02:16 69 01/21/17 01:04 67 01/21/17 00:46 59 01/20/17 23:20 63 01/20/17 23:20 97.7 62 16 142/82 97 01/20/17 22:30 60 01/20/17 21:00 56 01/20/17 20:00 56 01/20/17 19:00 58 01/20/17 19:00 98.2 52 16 151/84 97 01/20/17 18:00 60 01/20/17 17:00 54 01/20/17 16:00 60 01/20/17 15:00 98.2 58 18 151/81 98 01/20/17 15:00 59 01/20/17 14:00 62 01/20/17 13:00 68 01/20/17 12:00 74 01/20/17 11:00 98.1 63 18 149/81 98 01/20/17 11:00 67 I/O 01/20/17 01/20/17 01/20/17 01/21/17 01/21/17 01/21/17 07:00 15:00 23:00 07:00 15:00 23:00 Intake Total 240 ml Balance 240 ml Intake Oral 240 ml # Voids 2 # Bowel Movements 1 Physical Exam GENERAL: Well developed, well nourished. No acute distress. HEENT: Jugular venous pressure is normal. CHEST: Lungs clear to auscultation bilaterally. Unlabored respiratory effort. CARDIAC: Regular rate and rhythm with S$ and 2/6 ALEXANDER. ABDOMEN: Soft, nontender, no hepatosplenomegaly. Bowel sounds present. EXTREMITIES: No clubbing, cyanosis, or edema. Laboratory Laboratory Tests Test 01/20/17 01/20/17 01/20/17 01/21/17 12:50 13:48 16:57 05:26 Troponin I 0.11 NG/ML 0.10 NG/ML Activated Partial 33.9 SEC Thromboplast Time Folate 5.1 NG/ML White Blood Count 7.9 TH/MM3 Red Blood Count 4.76 MIL/MM3 Hemoglobin 15.0 GM/DL Hematocrit 44.9 % Mean Corpuscular Volume 94.4 FL Mean Corpuscular Hemoglobin 31.5 PG Mean Corpuscular Hemoglobin 33.4 % Concent Red Cell Distribution Width 14.2 % Platelet Count 170 TH/MM3 Mean Platelet Volume 8.0 FL Neutrophils (%) (Auto) 61.7 % Lymphocytes (%) (Auto) 26.0 % Monocytes (%) (Auto) 8.0 % Eosinophils (%) (Auto) 3.8 % Basophils (%) (Auto) 0.5 % Neutrophils # (Auto) 4.9 TH/MM3 Lymphocytes # (Auto) 2.0 TH/MM3 Monocytes # (Auto) 0.6 TH/MM3 Eosinophils # (Auto) 0.3 TH/MM3 Basophils # (Auto) 0.0 TH/MM3 CBC Comment DIFF FINAL Differential Comment Sodium Level 144 MEQ/L Potassium Level 4.1 MEQ/L Chloride Level 107 MEQ/L Carbon Dioxide Level 28.9 MEQ/L Anion Gap 8 MEQ/L Blood Urea Nitrogen 11 MG/DL Creatinine 1.22 MG/DL Estimat Glomerular Filtration 62 ML/MIN Rate Random Glucose 110 MG/DL Calcium Level 8.6 MG/DL Total Bilirubin 0.7 MG/DL Aspartate Amino Transf 12 U/L (AST/SGOT) Alanine Aminotransferase 16 U/L (ALT/SGPT) Alkaline Phosphatase 67 U/L Total Protein 5.8 GM/DL Albumin 3.1 GM/DL Assessment and Plan Problem List: (1) Accelerated hypertension Assessment and Plan: BP better controlled (2) Tobacco dependence Assessment and Plan: counseled to stop (3) Elevated troponin Assessment and Plan: doubt [place] (4) Angina pectoris (5) Status post aortic dissection repair (6) Alcohol abuse (7) Hypertensive heart disease Assessment and Plan: severe LVH on echo Assessment and Plan OK to DC home: Labetolol 400mg bid, Amlodipine 10mg, Lisinopril HCT 20-25 daily Problem Qualifiers (1) Hypertensive heart disease: Qualified Code: I11.9 - Hypertensive heart disease without heart failure Hudson Leslie MD Jan 21, 2017 10:06
[2017-01-21] MEDS ORDERED: HYDR25TA5 PO (14:24)
[2017-01-21] MEDS ORDERED: ASPI1TAB69 PO (14:24)
[2017-01-21] MEDS ORDERED: AMLO10 PO (14:24)
[2017-01-21] MEDS ORDERED: VITA100T2 PO (14:24)
[2017-01-21] MEDS ORDERED: LABE200T2 PO (14:24)
[2017-01-21] MEDS ORDERED: LIPI10TA PO (14:36)
--- NOTE | 2017-01-21 15:12 | HHI.PR ---
Subjective Remarks Patient well blood pressure improved no chest pain or short of breath Cleared by cardiology for discharge Objective Vitals Vital Signs Date Time Temp Pulse Resp B/P Pulse Ox O2 Delivery O2 Flow Rate FiO2 01/21/17 13:00 58 01/21/17 12:00 60 01/21/17 11:00 97.9 63 18 155/87 98 01/21/17 11:00 72 01/21/17 10:00 66 01/21/17 09:00 62 01/21/17 08:00 58 01/21/17 07:30 97.7 58 18 151/90 97 01/21/17 07:00 52 01/21/17 06:32 59 01/21/17 05:08 56 01/21/17 04:15 56 01/21/17 03:20 97.8 53 16 153/77 97 01/21/17 03:03 55 01/21/17 02:16 69 01/21/17 01:04 67 01/21/17 00:46 59 01/20/17 23:20 63 01/20/17 23:20 97.7 62 16 142/82 97 01/20/17 22:30 60 01/20/17 21:00 56 01/20/17 20:00 56 01/20/17 19:00 58 01/20/17 19:00 98.2 52 16 151/84 97 01/20/17 18:00 60 01/20/17 17:00 54 01/20/17 16:00 60 I/O 01/20/17 01/20/17 01/20/17 01/21/17 01/21/17 01/21/17 07:00 15:00 23:00 07:00 15:00 23:00 Intake Total 240 ml Balance 240 ml Intake Oral 240 ml # Voids 2 # Bowel Movements 1 Result Diagram: 01/21/17 0526 01/21/17 05 Objective Remarks GENERAL: This is a well-nourished, well-developed patient, in no apparent distress. SKIN: No rashes, warm and dry HEAD: Atraumatic. Normocephalic. EYES: Pupils equal round and reactive. Extraocular motions intact. No scleral icterus. ENT: Nose without bleeding, or drainage, Airway patent. NECK: Trachea midline. Supple CARDIOVASCULAR: Regular rate and rhythm systolic murmur RESPIRATORY: Fair air entry bilaterally. No wheezes, rales, or rhonchi. GASTROINTESTINAL: Abdomen soft, non-tender, nondistended. Positive bowel sounds MUSCULOSKELETAL: Extremities without clubbing, cyanosis, or edema. Pedal pulses appreciated /NEUROLOGICAL: Awake and alert. Moves all extremity. Normal speech.no focal neurological deficit A/P Assessment and Plan 56 years old male with history of aortic dissection status post repair and grafting came with Hypertensive urgency Acute chest pain syndrome mostly due to hypertensive urgency need to rule out ACS and aortic dissection Elevated troponin 0.13>0.11 Hypokalemia 3.3 Recent FLP from 2011 showed elevated TG and LDL, History of aortic dissection status post repair and grafting tobacco and alcohol abuse H/O Noncompliance DVT prophylaxis patient on heparin drip Plan: Admit to inpatient with telemetry Cycle cardiac enzyme noted CTA of the chest ruled out new aortic dissection Started on aspirin and heparin drip for ACS workup 2-D echo to assess heart capacity and verify systolic murmur Consulted cardiology, appreciated their input>> resuming amlodipine, adding lisinopril, changing Cardura and Lopressor to labetalol by mouth, blood pressure already improved Monitor blood pressure closely FLP hasn't been done, patient already ate, I discussed with him he will check fasting lipid file in the a.m., I will give him prescription for Lipitor to follow up with economics 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 He told me he used to be on statin medication without he stopped it without a reason Patient extensively counseled about tobacco and alcohol abuse DT prophylaxis with folic acid thiamine and Librium as needed Replace potassium with KCl 40 mg by mouth 1 Discharge Planning Discharge patient to home Condition on discharge: Improved Healthy heart Diet as tolerated Ad Kira activity Rx written: Norvasc and labetalol by mouth, resumed Lipitor, Follow-up with primary care physician and cardiology in 1 week, check lipid profile in a.m. Mae Montano MD Jan 21, 2017 15:12
[2017-01-21] MEDS ORDERED: LABETALOL HCL 200 MG TAB PO SCH (21:00)
== END 2017-01-21 15:46 | disposition home or self-care (01) | DRG 305 ==
LOC: NEPE 04:15 → NEDA 06:48 → HCIN 09:06
PROVIDERS: ADMIT Hospitalist; ATTEND Hospitalist
DX: I16.0 Hypertensive urgency (principal); R07.89 Other chest pain; E87.6 Hypokalemia; I10 Essential (primary) hypertension; Z91.14 Patient's other noncompliance with medication regimen; F10.10 Alcohol abuse, uncomplicated; F17.210 Nicotine dependence, cigarettes, uncomplicated; Z95.828 Presence of other vascular implants and grafts; Z82.49 Family history of ischemic heart disease and other diseases of the circulatory system; K21.9 Gastro-esophageal reflux disease without esophagitis
CPT/HCPCS: 71010; 71275; 74174; 80048; 80053; 82550; 82552; 82746; 83735; 84484; 85025; 85610; 85730; 93005; 93306; 96374; J0360; J1644; J7030; Q9967